=== PATIENT | female | born 1960 | race American Indian/Alaskan Native ===

== ENCOUNTER 2018-06-11 09:23 | Outpatient (CLI) | payer OTHER ==
--- NOTE | 2018-06-11 10:37 | XRay Report ---
RIGHT HIP, 2 views: History: Right hip pain. The bony architecture is intact without evidence of fracture or dislocation. No significant soft tissue abnormality is seen. IMPRESSION: Normal right hip.
--- NOTE | 2018-06-11 10:37 | XRay Report ---
BILATERAL KNEES, 2 VIEWS History: Bilateral knee pain. Findings: Normal bone mineralization. No acute osseous findings or joint pathology is identified. The soft tissues are unremarkable. Impression: Unremarkable bilateral knees.
== END 2018-06-11 09:24 | disposition home or self-care (01) ==
LOC: XRAY 09:23
PROVIDERS: ATTEND Internal Medicine
DX: Z02.71 Encounter for disability determination (principal); M25.551 Pain in right hip; M25.562 Pain in left knee; M25.561 Pain in right knee; Z91.018 Allergy to other foods; Z88.9 Allergy status to unspecified drugs, medicaments and biological substances